=== PATIENT | male | born 1990 | race Caucasian/White ===

== ENCOUNTER 2017-01-26 07:30 | Emergency (ER) | payer OTHER ==
[~2017-01-26] VITALS: Ht 177.8 cm; Wt 108.8 kg
[~2017-01-26 07:30] MED LIST: ADVIL200 MG PO; PERCOCET 5/31 TABLET PO
[2017-01-26] MEDS ORDERED: PERCOCET 5/31 TABLET PO (09:33)
[2017-01-26 09:42] LABS: BASOPHIL COUNT 0.1 K/uL (0-0.1); EOSINOPHIL (%) 0.7 % (0-5); EOSINOPHIL COUNT 0.1 K/uL (0-0.3); HEMATOCRIT 43.3 % (38.0-50.0); IMMATURE GRANULOCYTE (%) 0.9 % (0.0-0.7); IMMATURE GRANULOCYTE COUNT 0.1 K/uL; INSTRUMENT ABS NEUTROPHIL CT 7.5 K/uL; LYMPHOCYTE COUNT 1.8 K/uL (1.0-2.8); MCH 30.9 PG (29.0-34.0); MCHC 34.9 G/DL (30.0-36.0); MCV 88.7 FL (86-99); MEAN PLAT.VOLUME 8.8 uM^3 (9.0-12.4); MONOCYTE (%) 8.6 % (3-12); MONOCYTE COUNT 0.9 K/uL (0-0.8); NEUTROPHIL (%) 72.1 % (45-76); NEUTROPHIL COUNT 7.5 K/uL (1.8-6.4); PLATELET COUNT 350 K/uL (156-360); RBC DIS.WIDTH-CV 12.6 % (11.8-14.6); RBC DIS.WIDTH-SD 41.2 % (39-53); RED BLOOD COUNT 4.88 M/uL (4.00-5.50); WHITE BLOOD COUNT 10.4 K/uL (4.1-10.2)
[2017-01-26 09:50] LABS: CHLORIDE 105 mEq/L (99-109); POTASSIUM 4.5 mEq/L (3.7-5.4); SODIUM 138 mEq/L (136-147)
[2017-01-26 09:52] LABS: GLUCOSE 107 mg/dL (70-99)
[2017-01-26 09:53] LABS: ANION GAP 9 MEQ/L (2-14)
[2017-01-26 09:56] LABS: GFR ESTIMATE (CALCULATED) > 59 mL/min/
[2017-01-26 09:57] LABS: UREA NITROGEN (BUN) 7 mg/dL (9-23)
[2017-01-26 10:54] VITALS: BP 120/85
== END 2017-01-26 10:54 | disposition home or self-care (01) ==
LOC: EME 07:30
PROVIDERS: Emergency Medicine
PROC: 2W3QX1Z Immobilization of Right Lower Leg using Splint (ICD-10-PCS; principal; 2017-01-26)
DX: S92.811A Other fracture of right foot, initial encounter for closed fracture (principal); V49.40XA Driver injured in collision with unspecified motor vehicles in traffic accident, initial encounter; F17.200 Nicotine dependence, unspecified, uncomplicated
CPT/HCPCS: 73610; 73630; 80048; 85025; 85610; 99281; 99285; J2270

== ENCOUNTER 2017-02-09 11:12 | Emergency (ER) | payer OTHER ==
[~2017-02-09] VITALS: Ht 177.8 cm; Wt 104.5 kg
[2017-02-09 16:06] VITALS: BP 112/72
== END 2017-02-09 16:06 | disposition home or self-care (01) ==
LOC: EME 11:12
DX: G89.18 Other acute postprocedural pain (principal); M79.661 Pain in right lower leg; F17.200 Nicotine dependence, unspecified, uncomplicated
CPT/HCPCS: 93971; 99281; 99284